=== PATIENT | female | born 1975 | race Caucasian/White ===

== ENCOUNTER 2019-02-16 14:53 | Inpatient (IN) | payer MEDICARE ==
[~2019-02-16] VITALS: Ht 160 cm; Wt 50.0 kg
[~2019-02-16 14:53] MED LIST: MOTRIN800 MG PO; OXYCODONE HCL10 MG; OXYCONTIN10 MG PO; PERCOCET 10/3251 TA1 PO; SOMA350 MG PO; SURFAK240 MG PO
[2019-02-16 15:24] LABS: BASOPHILS 0 % (0-2); EOSINOPHILS 0.1 % (0-7); HEMATOCRIT 38.2 % (36.0-48.0); HEMOGLOBIN 12.5 g/dL (12-16); IMMATURE GRANULOCYTES 0.3 % (0-5); LYMPHOCYTES 5.8 % (15-50); MCH 28.4 pg (26.0-34.0); MCHC 32.7 g/dL (31.0-37.0); MCV 86.8 fL (80.0-100.0); MEAN PLATELET VOLUME 8.5 fL (7.4-10.4); MONOCYTES 7.8 % (2-11); RDW 14.6 % (11.5-14.5); WBC 14.2 10x3/uL (4.8-10.8)
[2019-02-16 15:25] LABS: PLATELET COUNT 154 10x3/uL (130-400)
[2019-02-16 15:36] LABS: ANION GAP 10.5 mmol/L (8-16); CALCIUM 8.5 mg/dL (8.5-10.1); CARBON DIOXIDE 25.9 mmol/L (21.0-32.0); CREATININE - SERUM 1.3 mg/dL (0.6-1.3); POTASSIUM - SERUM 3.4 mmol/L (3.5-5.1)
[2019-02-16 15:43] LABS: ALBUMIN 2.8 g/dL (3.4-5.0); BILIRUBIN - TOTAL 0.35 mg/dL (0.2-1.3); PROTEIN - SERUM 6.2 g/dL (6.4-8.2)
[2019-02-16 16:16] LABS: APPEARANCE CLOUDY (CLEAR); COLOR YELLOW (YELLOW); GLUCOSE NEGATIVE (NEGATIVE); NITRITE POSITIVE (NEGATIVE); PROTEIN 1+ mg/dL (NEGATIVE); SPECIFIC GRAVITY 1.005 (1.005-1.020)
[2019-02-16 16:17] LABS: BACTERIA MANY /hpf (NEGATIVE); BILIRUBIN NEGATIVE (NEGATIVE); EPITHELIAL CELLS 0-5 /hpf (0-5); KETONE NEGATIVE (NEGATIVE); RED CELLS - URINE 0-5 /hpf (0-5); UROBILINOGEN NORMAL (NORMAL); WHITE CELLS - URINE 25-50 /hpf (NEGATIVE)
--- NOTE | 2019-02-16 16:26 | NUR ---
PT TRANSPORTED TO CT AT THIS TIME VIA STRETCHER
[2019-02-16 18:09] VITALS: BP 98/54
--- NOTE | 2019-02-16 20:40 | NUR ---
LEVAQUIN 750MG STOPPED AT THIS TIME.
--- NOTE | 2019-02-16 20:55 | NUR ---
gave patient sandwich tray and drink.
--- NOTE | 2019-02-16 20:55 | NUR ---
called reports [facility]mata. unable to transport patient at this time.
--- NOTE | 2019-02-16 21:30 | NUR ---
PATIENT ADDED TO TELE WAIT LIST. NO MONITORS AVAILABLE AT THIS TIME.
--- NOTE | 2019-02-16 21:43 | NUR ---
REC'D PATIENT FROM ER. COMPLETED ASSESSMENT. VSS. BROUGHT PATIENT WATER PER HER REQUEST. PATIENT REQUESTED PAIN MEDICATION FOR 10/10 PAIN WHEN AVAILABLE. PATIENT DENIES OTHER NEEDS AT THIS TIME. BED IN LOWEST POSITION AND CALL LIGHT WITHIN REACH. ENCOURAGED THE PATIENT TO CALL IF SHE HAS NEEDS. WILL CONTINUE TO MONITOR.
[2019-02-16 21:55] VITALS: BP 107/58; BMI 19.5
--- NOTE | 2019-02-17 00:40 | NUR ---
PATIENT RESTING IN BED WITH EYES CLOSED AND NO S/S OF DISTRESS. BED IN LOWEST POSITION AND CALL LIGHT WITHIN REACH. WILL CONTINUE TO MONITOR.
--- NOTE | 2019-02-17 04:28 | NUR ---
PATIENT RESTING IN BED WITH EYES CLOSED AND NO S/S OF DISTRESS. BED IN LOWEST POSITION AND CALL LIGHT WITHIN REACH. WILL CONTINUE TO MONITOR.
[2019-02-17 04:57] VITALS: BP 113/62
--- NOTE | 2019-02-17 06:15 | NUR ---
MORPHINE WAS PULLED AND WASTED ON THE INCORRECT PATIENT. MORPHINE WAS ADMINISTERED TO THIS PATIENT ACCORDING TO THE MEDICATION ORDER.
[2019-02-17 07:13] LABS: ANION GAP 16.4 mmol/L (8-16); CALCIUM 7.7 mg/dL (8.5-10.1); CARBON DIOXIDE 21.5 mmol/L (21.0-32.0); CREATININE - SERUM 1.1 mg/dL (0.6-1.3); POTASSIUM - SERUM 3.9 mmol/L (3.5-5.1)
--- NOTE | 2019-02-17 07:15 | NUR ---
PT RESTING, EYES CLOSED. RR ARE EVEN AND UNLABORED. WCTM.
[2019-02-17 07:23] LABS: BASOPHILS 0 % (0-2); EOSINOPHILS 0.5 % (0-7); HEMATOCRIT 37.1 % (36.0-48.0); HEMOGLOBIN 11.6 g/dL (12-16); IMMATURE GRANULOCYTES 0.1 % (0-5); LYMPHOCYTES 12.5 % (15-50); MCH 27.7 pg (26.0-34.0); MCHC 31.3 g/dL (31.0-37.0); MCV 88.5 fL (80.0-100.0); MEAN PLATELET VOLUME 9.1 fL (7.4-10.4); MONOCYTES 10.2 % (2-11); NEUTROPHILS 76.7 % (40-80); PLATELET COUNT 149 10x3/uL (130-400); RBC 4.19 10x6/uL (4.00-5.40); RDW 14.9 % (11.5-14.5)
[2019-02-17 07:25] LABS: WBC 7.3 10x3/uL (4.8-10.8)
[2019-02-17 09:08] VITALS: BP 127/64
[2019-02-17 09:13] VITALS: Ht 160 cm; Wt 50.0 kg
--- NOTE | 2019-02-17 09:45 | NUR ---
PAIN MEDICATION AND NAUSEA MEDICATION REQUESTED AND REC'D AT THIS TIME. WCTM.
--- NOTE | 2019-02-17 16:00 | NUR ---
EDUCATION PROVIDED ON NEED FOR URINE SAMPLE. VERBALIZED UNDERSTANDING. CUP IN ROOM.
--- NOTE | 2019-02-17 16:25 | NUR ---
PATIENT STATES SPILLED URINE FROM SAMPLE. NEW CUP GIVEN. REQUESTING TO BE UNHOOKED FROM IV TO WALK OUTSITE. PATIENT UNHOOKED.
--- NOTE | 2019-02-17 17:12 | NUR ---
PATIENT STILL OUTSIDE.
--- NOTE | 2019-02-17 17:30 | NUR ---
PATIENT RETURNED TO ROOM.
--- NOTE | 2019-02-17 18:29 | NUR ---
RESTING IN BED. DENIES NEEDS. BED LOW. CALL RANDLE AND PERSONAL ITEMS IN REACH.
[2019-02-17 19:04] VITALS: BP 156/72
--- NOTE | 2019-02-17 21:33 | NUR ---
PATIENT HAS NO S/S OF DISTRESS AT THIS TIME. PATIENT REQUESTED TO GET UP AND AMBULATE. VSS. PATIENT DENIES OTHER NEEDS AT THIS TIME. BED IN LOWEST POSITION AND CALL LIGHT WITHIN REACH. ENCOURAGED THE PATIENT TO CALL IF SHE HAS NEEDS.
[2019-02-17 23:49] VITALS: BP 131/71
[2019-02-18 04:37] VITALS: BP 156/88
--- NOTE | 2019-02-18 07:00 | NUR ---
RECEIVED REPORT. ASSUMED CARE OF PATIENT. PATIENT RESTING IN BED WITH EYES OPEN. CALL LIGHT WITHIN REACH. DENIES NEEDS AT THIS TIME. NO DISTRESS.
[2019-02-18 07:50] VITALS: BP 145/71
--- NOTE | 2019-02-18 08:04 | NUR ---
PATIENT IS NOT IN ROOM, PATIENT HAS LEFT ROOM WITH HER IV POLE AND DID NOT NOTIFY ANYONE. NOC NURSE STATES THAT PATIENT LIKES TO WALK SHE FEELS CLOSTROPHOBIC. UNABLE TO OBTAIN VITAL SIGNS OR PLACE PATIENT IN CONTACT ISOLATION AT THIS TIME. PATIENT HAS ESBL IN URINE.
--- NOTE | 2019-02-18 08:10 | NUR ---
PATIENT RETURN TO HER ROOM AT THIS TIME. PLACED ON ISOLATION.
[2019-02-18] MEDS ORDERED: CIPRO500 MG PO (10:49)
[2019-02-18] MEDS ORDERED: PHENAZOPYRIDIN200 MG PO (10:50)
--- NOTE | 2019-02-18 11:40 | NUR ---
INFLUENZA VACCINE ADMINISTERED TO RIGHT DELTOID. NO DISTRESS.
--- NOTE | 2019-02-18 11:45 | NUR ---
20 GAUGE IV REMOVED FROM LEFT FOREARM. NO BLEEDING FROM SITE. CATHETER TIP INTACT. 2X2 GAUZE APPLIED AND SECURED WITH TAPE.
--- NOTE | 2019-02-18 11:58 | NUR ---
PATIENT LEFT UNIT AT 1150. PATIENT AMBULATED OFF UNIT. PATIENT REFUSED WHEELCHAIR. PATIENT LEFT UNIT WITH ALL PERSONAL BELONGINGS IN STABLE CONDITION. NO DISTRESS UP LEAVING UNIT.
--- NOTE | 2019-02-18 15:31 | MORECARE ---
CASE MANAGEMENT DISCHARGE SUMMARY PATIENT: CAROLYN ROBLERO UNIT: [id number] ADM DATE: 02/16/19 AGE: 43 : 75 SEX: F ROOM/BED: D.1205 AUTHOR: LOUISE MENDOZA PHYSICIAN: REFERRING PHYSICIAN: PAULA LEPE MD DATE OF SERVICE: 02/18/19 Discharge Plan Patient Name: CAROLYN ROBLERO [facility] [facility] 1975 Planned Disposition: Home Anticipated Discharge Date: 02/18/19 Discharge Date: 02/18/2019 Expected LOS: 2 Initial Reviewer: [email or web address] Initial Review Date: 02/16/2019 Generated: 02/18/19 4:31 pm DCPIA - Discharge Planning Initial Assessment Updated by [email or web address]: Rebecca Douglas on 02/18/19 3:31 pm * Is the patient Alert and Oriented? Yes * PCP Dr. Santiago * Pharmacy [facility] * Preadmission Environment Home with Family * ADLs Independent * Equipment None * List name and contact numbers for known caregivers / representatives who currently or will assist patient after discharge: Frankymau Alcantara [facility] [phone] * Verbal permission to speak to the caregivers and representatives has been obtained from the patient. Yes * Community resources currently utilized None * Additional services required to return to the preadmission environment? No * Can the patient safely return to the preadmission environment? Yes * Has this patient been hospitalized within the prior 30 days at any hospital? No Patient Name: CAROLYN ROBLERO Page 13211 at 1531 All edits/amendments must be made on the electronic document DICTATION DATE: 02/18/19 1531 SUPERVISOR CONTACT LENS: STACI 02/18/19 1531 RPT#: [id number] DC DATE:02/18/19 STATUS: DIS IN [facility] [address] [place] [address] END OF REPORT
--- NOTE | 2019-02-18 15:40 | MORECARE ---
CASE MANAGEMENT DISCHARGE SUMMARY PATIENT: CAROLYN ROBLERO UNIT: [id number] ADM DATE: 02/16/19 AGE: 43 : 75 SEX: F ROOM/BED: D.1205 AUTHOR: REJI,DOC PHYSICIAN: REFERRING PHYSICIAN: PAULA LEPE MD DATE OF SERVICE: 02/18/19 Discharge Plan Patient Name: CAROLYN ROBLERO Facility: [facility]:[place] : 1975 Planned Disposition: Home Anticipated Discharge Date: 02/18/19 Discharge Date: 02/18/2019 Expected LOS: 2 Initial Reviewer: [email or web address] Initial Review Date: 02/16/2019 Generated: 02/18/19 4:40 pm Comments DCP- Discharge Planning Updated by [email or web address]: Rebecca Douglas on 02/18/19 2:[address] DC PLAN: Return home with life partner independently. ANTICIPATED DC NEEDS: denied dc needs. CM met with patient to complete initial dc planning assessment. CM educated patient on the CM role and verbal consent given by patient to complete assessment. CM verified patient's address, phone number, and emergency contact phone numbers. Patient lives at home with her life partner. At discharge patient plans to return home independently and feels this is a safe discharge. CM discussed availability of home health, rehab services, and medical equipment. Patient denied known discharge needs at this time. Transportation provider at discharge will be determined. CM will continue to follow and will assist as needed with dc plans/needs. Rebecca Douglas RN, [facility] DCPIA - Discharge Planning Initial Assessment Updated by [email or web address]: Rebecca Douglas on 02/18/19 3:31 pm * Is the patient Alert and Oriented? Yes * PCP Dr. Santiago * Pharmacy [facility] * Preadmission Environment Home with Family * ADLs Independent * Equipment None * List name and contact numbers for known caregivers / representatives who currently or will assist patient after discharge: Kulwant Alcantara - life partner - [phone] * Verbal permission to speak to the caregivers and representatives has been obtained from the patient. Yes * Community resources currently utilized None * Additional services required to return to the preadmission environment? No * Can the patient safely return to the preadmission environment? Yes * Has this patient been hospitalized within the prior 30 days at any hospital? No Last DP export: 02/18/19 2:31 p Patient Name: CAROLYN ROBLERO Page 41294 at 1540 All edits/amendments must be made on the electronic document DICTATION DATE: 02/18/19 1540 LAUNDRY HOUSEKEEPER: STACI 02/18/19 1540 RPT#: [id number] DC DATE:02/18/19 STATUS: DIS IN [facility] [address] [place] [address] END OF REPORT
--- NOTE | 2019-02-18 18:48 | MORECARE ---
CASE MANAGEMENT DISCHARGE SUMMARY PATIENT: CAROLYN ROBLERO UNIT: [id number] ADM DATE: 02/16/19 AGE: 43 : 75 SEX: F ROOM/BED: D.1205 AUTHOR: REJI,DOC PHYSICIAN: REFERRING PHYSICIAN: PAULA LEPE MD DATE OF SERVICE: 02/18/19 Discharge Plan Patient Name: CAROLYN ROBLERO Facility: [facility]:[place] : 1975 Planned Disposition: Home Anticipated Discharge Date: 02/18/19 Discharge Date: 02/18/2019 Expected LOS: 2 Initial Reviewer: [email or web address] Initial Review Date: 02/16/2019 Generated: 02/18/19 7:47 pm Comments DCP- Discharge Planning Updated by [email or web address]: Rebecca Douglas on 02/18/19 2:[address] DC PLAN: Return home with life partner independently. ANTICIPATED DC NEEDS: denied dc needs. CM met with patient to complete initial dc planning assessment. CM educated patient on the CM role and verbal consent given by patient to complete assessment. CM verified patient's address, phone number, and emergency contact phone numbers. Patient lives at home with her life partner. At discharge patient plans to return home independently and feels this is a safe discharge. CM discussed availability of home health, rehab services, and medical equipment. Patient denied known discharge needs at this time. Transportation provider at discharge will be determined. CM will continue to follow and will assist as needed with dc plans/needs. Rebecca Douglas RN, [facility] DCPIA - Discharge Planning Initial Assessment Updated by [email or web address]: Rebecca Douglas on 02/18/19 3:31 pm * Is the patient Alert and Oriented? Yes * PCP Dr. Santiago * Pharmacy [facility] * Preadmission Environment Home with Family * ADLs Independent * Equipment None * List name and contact numbers for known caregivers / representatives who currently or will assist patient after discharge: Kulwant Alcantara - life partner - [phone] * Verbal permission to speak to the caregivers and representatives has been obtained from the patient. Yes * Community resources currently utilized None * Additional services required to return to the preadmission environment? No * Can the patient safely return to the preadmission environment? Yes * Has this patient been hospitalized within the prior 30 days at any hospital? No Last DP export: 02/18/19 2:40 p Patient Name: CAROLYN ROBLERO Page 86055 at 1848 All edits/amendments must be made on the electronic document DICTATION DATE: 02/18/191846 TOOL PROCUREMENT COORDINATOR: STACI 02/18/191846 RPT#: [id number] DC DATE:02/18/19 STATUS: DIS IN [facility] [address] [place] [address] END OF REPORT
== END 2019-02-18 12:15 | disposition home or self-care (01) | DRG 872 ==
LOC: D.ER 14:53 → D.M3 18:51
PROVIDERS: Family Medicine; ADMIT Internal Medicine Nephrology; ATTEND Internal Medicine Nephrology
DX: A41.9 Sepsis, unspecified organism (principal); N12 Tubulo-interstitial nephritis, not specified as acute or chronic; N39.0 Urinary tract infection, site not specified; E87.1 Hypo-osmolality and hyponatremia; F17.213 Nicotine dependence, cigarettes, with withdrawal; E87.6 Hypokalemia; G40.909 Epilepsy, unspecified, not intractable, without status epilepticus; J45.909 Unspecified asthma, uncomplicated; M79.7 Fibromyalgia; F41.9 Anxiety disorder, unspecified

== ENCOUNTER 2019-05-30 00:43 | Emergency (ER) | payer MEDICARE ==
[~2019-05-30] VITALS: Ht 160 cm; Wt 54.5 kg
[~2019-05-30 00:43] MED LIST changes: +CIPRO500 MG PO; +PHENAZOPYRIDIN200 MG PO
[2019-05-30 01:08] VITALS: Ht 160 cm; Wt 54.5 kg
[2019-05-30] MEDS ORDERED: NORCO-7.51 TAB PO (01:50)
[2019-05-30 02:38] VITALS: BP 118/87
== END 2019-05-30 02:38 | disposition home or self-care (01) ==
LOC: D.ER 00:43
DX: R07.81 Pleurodynia (principal); M54.2 Cervicalgia; V89.2XXA Person injured in unspecified motor-vehicle accident, traffic, initial encounter; Y93.9 Activity, unspecified; Y92.9 Unspecified place or not applicable; G62.9 Polyneuropathy, unspecified; J45.909 Unspecified asthma, uncomplicated; Z72.0 Tobacco use